=== PATIENT | female | born 1950 | race Caucasian/White ===

== ENCOUNTER 2025-02-17 14:05 | Emergency (ER) | payer MEDICARE, BC, SELFPAY ==
[2025-02-17 14:08] VITALS: BMI 22.7
[2025-02-17 14:09] VITALS: BP 157/72
[2025-02-17 14:29] LABS: % Basophils 0.6 % (0-2); % Eosinophils 5.4 % (0-6); % Immature Granulocytes 0.1 % (0-0.5); % Lymphocytes 27.8 % (20.5-51.1); % Monocytes 6.9 % (1.7-9.3); % Neutrophils 59.2 % (42.2-75.2); Absolute Eosinophils 0.4 10^3/uL (0-0.7); Absolute Lymphocytes 1.9 10^3/uL (1.2-3.4); Absolute Monocytes 0.5 10^3/uL (0.1-0.6); Hematocrit 36.9 % (37.0-47.0); Hemoglobin 12.3 g/dL (12.0-16.0); Mean Corp Hgb Conc. 33.3 g/dL (33.0-37.0); Mean Corpuscular Volume 96.1 fL (81.0-99.0); Mean Platelet Volume 9.4 fL (7.4-10.4); Nucleated Red Blood Cells % 0 %; Platelet Count 249 10^3/uL (130-400); Red Blood Cell Count 3.84 10^6/uL (4.20-5.40); Red Cell Dist. Width 12.8 % (11.5-14.5); White Blood Cell Count 6.7 10^3/uL (4.8-10.8)
[2025-02-17 14:37] LABS: ALT (SGPT) 22 U/L (0-35); AST (SGOT) 30 U/L (14-36); Albumin 4.6 g/dl (3.5-5.0); Alkaline Phosphatase 77 U/L (38-126); Blood Urea Nitrogen 17 mg/dl (7-17); Calcium 9.4 mg/dl (8.4-10.2); Carbon Dioxide 23 mmol/L (22-30); Chloride 108 mmol/L (98-107); Estimated Creatinine Clearance 47 ml/min; Glucose 106 mg/dl (70-99); Potassium 4.6 mmol/L (3.5-5.1); Sodium 139 mmol/L (135-145); Total Bilirubin 0.6 mg/dl (0.2-1.3); Total Protein 7.9 g/dl (6.3-8.2); eGFR > 60.00
[2025-02-17 15:00] VITALS: BP 150/74
[2025-02-17 16:00] VITALS: BP 137/80
--- NOTE | 2025-02-17 16:01 | ED.GENMED ---
History of Present Illness
General
Chief Complaint: Fainting/Passed Out
Source: patient and family
Time Seen by Provider: 02/17/25 15:38
History of Present Illness
History of Present Illness:
74-year-old female presents the emergency room after having a syncopal episode. Patient was out to lunch with her family. After eating the appetizer she was already feeling full. She began to have some abdominal fullness or cramping. Family then
observed the patient to stare and become nonresponsive and then fade back to her chair. They laid her on the ground and she quickly regained consciousness. When she regained consciousness she was alert and interactive. She felt a little dizzy
when they got up to go to the bathroom. 911 was called. She was in sinus rhythm on the monitor. Patient states she has a history of hypertension and high cholesterol. She denies any history of heart failure or coronary artery disease. She does
not smoke though she does drink 2 to 3 glasses of wine a day. No recreational drugs. 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 Currently she feels back to her baseline. She has no complaints whatsoever at this time.
Phy Exam
Physical Exam
Physical Exam:
General: Awake, Alert, Oriented X3. No acute distress.
Vitals: unremarkable
Head: Atraumatic
Eyes: Pupils equal, EOMI
Throat: Airway intact, no exudates
Neck: Trachea midline
Lungs: Clear and equal b/l
Heart: Regular rate, 2/6 systolic ejection murmurs
Abd: Soft, Nontender, No pulsatile mass
Neuro: Cranial nerves intact, muscle strength equal bilaterally
Skin: Warm, dry, no rash
Extremities: pulses equal b/l, no edema
Course
Orders/Labs/Results
Orders:
Orders
02/17/25 14:17
CMP [Comprehensive Metabolic Panel] Urgent
Complete Blood Count/With Diff Urgent
02/17/25 15:38
EKG [Electrocardiogram (*1)] Stat
Reason for Study: Syncope
EKG- Treatment ONCE
02/17/25 16:00
CR Chest - 2 Views Urgent
Comment:
Reason For Exam: Syncope
Abnormal Lab Results
02/17/25
14:17
RBC 3.84 L 10^6/uL
(4.20-5.40)
Hct 36.9 L %
(37.0-47.0)
MCH 32.0 H pg
(27.0-31.0)
Chloride 108 H mmol/L
(98-107)
Glucose 106 H mg/dl
(70-99)
02/17/25 14:17
02/17/25 14:17
Vital Signs
Initial and Last Documented VS:
Initial Vital Signs
Temp Pulse Resp Pulse Ox
97.7 F 64 16 96
02/17/25 14:08 02/17/25 14:08 02/17/25 14:08 02/17/25 14:08
Last Documented Vital Signs
Temp Pulse Resp BP Pulse Ox
97.7 F 74 16 124/68 98
02/17/25 14:08 02/17/25 17:27 02/17/25 17:27 02/17/25 17:27 02/17/25 17:27
MDM/Problems Addressed
Differential Diagnosis Includes:
Vasovagal syncope, dysrhythmia, symptomatic anemia
MDM/Problems Addressed:
Patient presents after passing out at a restaurant. She was experiencing some abdominal fullness and bloating prior to the event. She quickly regained consciousness. The overall presentation seems most consistent with a vasovagal event. Patient
does not have a history of heart failure. She is not anemic. Her vital signs are good here she does have a murmur noted but it seems to be more of a 2/6 systolic murmur. Patient notified of this and the need to follow-up as an outpatient. I do
not believe the patient would benefit from hospitalization. Have her discharged to follow-up with cardiology and her primary care doctor.
*Radiology
Radiology exam reviewed: preliminary read by ED provider (No acute abnormality on my review of the patient's chest x-ray)
*Pulse Oximetry
SaO2: 99
Oxygen Mode of Delivery: Room air
Patient hypoxic: no
*EKG
Interpreted by ED Provider?: Yes
Heart Rate: 65
Rate: normal
Rhythm: sinus
[place]: normal axis
Interval: normal interval
QRS Pattern: normal QRS
Ischemia: no ischemia
*Concrete Handler Interpretation
Rate: normal
Interpretation: normal
Heart Rate: 65
Rhythm: sinus
*Critical Care Note
Total Time (30-74mins, 75-104mins- exclusive of procedures): Not Applicable
ED Attending Note
-
Portions of this chart may have been created with voice recognition software.� Occasional wrong word or��sound alike� substitutions may have occurred due to the inherent limitations of voice recognition software.
Discharge Plan
Departure
Patient Disposition: Home (Routine Discharge)
Date of Disposition: 02/17/25
Time of Disposition: 17:01
Patient with high blood pressure during this ER visit?: Yes
Condition: Good
Discharge Problem:
Syncope, Syncope, vasovagal
Instructions: Syncope (fainting)
Referrals:
Stuart Bae MD [Active, Cardiology]
TenthLiz haas MD [Family Provider, Family Practice]
Activity Restrictions/Additional Instructions:
Call the cardiology office to arrange an appointment. You do have a mild heart murmur. Also, follow up with your family doctor.
Interventions
Interventions:
*Risk Screen - Suicide Last Done: 02/17/25 14:10
*General Assessment Last Done: 02/17/25 14:10
*Neglect/Abuse Screening Last Done: 02/17/25 14:10
*ED- Fall Risk Assessment Last Done: 02/17/25 14:10
*ED COVID-19 Vaccine History Last Done: 02/17/25 14:10
*Nursing Disposition Last Done: 02/17/25 17:27
ED- Cardiac Assessment Last Done: 02/17/25 14:34
ED- Neurological Assessment Last Done: 02/17/25 14:34
Discharge Date and Time
Discharge Date/Time: 02/17/25 17:28
Print Language: ROMANIAN
[2025-02-17 16:42] VITALS: BP 138/55
[2025-02-17 17:00] VITALS: BP 142/68
[2025-02-17 17:27] VITALS: BP 124/68
== END 2025-02-17 17:28 | disposition home or self-care (01) ==
LOC: EMR 14:05
PROVIDERS: Emergency Medicine; EMERGENCY PHYSICIAN Emergency Medicine; FAMILY PHYSICIAN Family Medicine
DX: R55 Syncope and collapse (principal); R14.0 Abdominal distension (gaseous); E78.00 Pure hypercholesterolemia, unspecified; I10 Essential (primary) hypertension; R01.1 Cardiac murmur, unspecified; Z88.0 Allergy status to penicillin
CPT/HCPCS: 99283; 71046; 80053; 85025; 93005

== ENCOUNTER → 2025-07-23 09:58 | Outpatient (REF) | payer MEDICARE, BC, SELFPAY | LOC: HWRCS 09:58 | PROVIDERS: ATTENDING PHYSICIAN Internal Medicine Cardiovascular Disease; FAMILY PHYSICIAN Family Medicine | DX: R55 Syncope and collapse (principal) | CPT/HCPCS: 93306 ==